=== PATIENT | male | born 1960 | race Caucasian/White ===

== ENCOUNTER → 2017-06-21 | Day surgery (SDC) | payer OTHER ==
[~2017-06-21] MED LIST: ASPIRIN325 M2 PO; ATENOLOL25 M1 PO; ATORVASTATIN CA10 M1 PO; GLYBURIDE5 M1 PO; JANUVIA50 M1 PO; LANTUS SOL100 UNIT/1 IJ; LASIX40 M1 PO; LISINOPRIL40 M1 PO; METFORMIN HCL500 M3 PO; NORVASC5 M1 PO; NOVOLIN R100 UNIT/1 INJ; NOVOLOG100 UNIT/2 INJ
--- NOTE | 2017-06-21 10:02 | Operative Report ---
Operative/Inv Procedure Report Surgery Date: 06/21/17 Name of Procedure: Exploratory laparoscopy full-thickness liver biopsy. Pre-Operative Diagnosis: Severe morbid obesity Post-Operative Diagnosis: Cirrhosis of liver Estimated Blood Loss: less than 50ml Surgeon/Supervisor Plastics: Angle Blanco MD,Sage Olmedo Anesthesia: general endotracheal tube IV Fluids: None not recorded Urine Output: Not recorded Specimens: None to passes with the full-thickness liver biopsy sent in formalin to pathology Microbiology: None Complications: No complications Condition: Stable Operative Indication: The patient has severe morbid obesity and it was undergoing a planned laparoscopic Marc-en-Y gastric bypass. I have explained the risks and potential complications of the procedure including bleeding infection deep venous thrombosis pulmonary embolism, injury to the esophagus stomach small intestine and large intestine liver spleen pancreas and surrounding organs possible need for further surgery possible need for conversion to open among other potential complications possible mortality Operative/Procedure Note Note: The patient was brought into the operating room placed operating room table in the supine position after the administration of general anesthesia patient was prepped and draped in the sterile fashion a transverse incision was made down from the bellybutton down through the skin to the fascia fascia was incised in 2 -0 Prolene sutures were placed in the fascia blunt port inserted into the abdomen. An inserting the scope there appeared to be some ascitic fluid the liver was then visualized and appeared to be grossly cirrhotic. At this point it was felt that proceeding with a gastric bypass would be overly aggressive and unsafe. The plan now is to perform a liver biopsy and attempts to see if this cirrhosis was mild we could proceeded a later date with a sleeve gastrectomy. 5 mm ports were placed in the right upper quadrant incision was made subxiphoid and a full-thickness liver biopsy was made with a pass with the liver automatic liver device is used according to protocol. A second pass was performed with full-thickness liver biopsy. Hemostasis liver bed was achieved hemostasis of the subxiphoid port was achieved. There were no other abnormalities there was no large no excessive amount of ascites was a small amount of fluid. There were no other abnormalities. The ports removed under direct vision hemostasis the port sites were achieved with electrocautery. Thea is closed with 2 interrupted 0 Prolene sutures. The skin was closed with 4-0 Monocryl Steri- Strips replacement wounds had sterile dressing on the wound. Patient out the procedure well was brought to recovery room in stable condition.
== END ==
LOC: SDA 02:47 → UNDOADMIN 02:47 → EDSTATUS 07:00 → STS 14:44
DX: K74.60 Unspecified cirrhosis of liver (principal); E66.01 Morbid (severe) obesity due to excess calories; Z68.43 Body mass index [BMI] 50.0-59.9, adult; E11.9 Type 2 diabetes mellitus without complications; Z79.4 Long term (current) use of insulin; I10 Essential (primary) hypertension; Z87.891 Personal history of nicotine dependence; I83.812 Varicose veins of left lower extremity with pain; G47.30 Sleep apnea, unspecified
CPT/HCPCS: C9399; J0131; J0690; J1100; J1644; J2250; Q9968

== ENCOUNTER → 2017-10-04 | Day surgery (SDC) | payer OTHER ==
[~2017-10-04] VITALS: Ht 177.8 cm; Wt 132.4 kg
[~2017-10-04] MED LIST changes: +ASPIRIN EC81 M1 PO; +GLUCOPHAGE1000 M1 PO; +JANUVIA100 M1 PO; +LIPITOR20 M2 PO; +[UNRECOGNIZED DRUG - OTHER] PO
--- NOTE | 2017-10-04 14:14 | Operative Report ---
Operative/Inv Procedure Report Surgery Date: 10/04/17 Name of Procedure: Left open carpal tunnel release Pre-Operative Diagnosis: Left carpal tunnel syndrome Post-Operative Diagnosis: Left carpal tunnel syndrome Estimated Blood Loss: scant Surgeon/Indian Trader: Skyler Cordova MD Anesthesia: laryngeal mask airway Complications: None Condition: Stable to PACU Operative Indication: This is a 56-year-old male with left carpal tunnel syndrome that has failed conservative care. Risks and benefits of the procedure were discussed with the patient at length. Risks include but are not limited to nerve damage, muscle damage, infection, blood loss, blood clots, pulmonary embolus, and even . The patient agreed to the above risks and elected to proceed with surgery. Operative/Procedure Note Note: The patient was taken to the operating room and placed supine on the operating room table. A tourniquet was applied to the arm above the elbow. The upper extremity was prepped and draped in the normal sterile fashion. The patient received IV antibiotics prior to incision. A time out was performed and the site marking was also visualized prior to incision. An Esmarch was used to exsanguinate the extremity. The tourniquet was inflated. An incision was made extending from the distal wrist crease starting overlying the palmaris longest tendon in line with the fourth ray. This extended 2.5 cm. Care was taken not to cross Lehman's cardinal line. Fat was also reflected at this time and the palmar fascia was incised. Next the transverse carpal ligament was incised. A [place] elevator was inserted deep to the ligament to protect the contents of the carpal tunnel. A knife was then used to release the ligament further distally. Next scissors were used to extend the release distally until the palmar fat was approached, taking care to protect the superficial palmar arch. The transverse carpal ligament was then incised proximally. The volar forearm fascia was released. Once the release was complete the wound was copiously irrigated. The incision was closed with 3-0 nylon suture in a simple interrupted fashion. 0.25% Marcaine was then injected to anesthetize the wound. A dry sterile dressing was applied and the patient was transferred to PACU in stable condition.
== END ==
LOC: STS 01:08
DX: G56.02 Carpal tunnel syndrome, left upper limb (principal); M25.561 Pain in right knee; Z79.01 Long term (current) use of anticoagulants; I10 Essential (primary) hypertension; E66.9 Obesity, unspecified
CPT/HCPCS: J0690; J2250